=== PATIENT | male | born 1965 | race Caucasian/White ===

== ENCOUNTER 2016-09-21 18:40 | Observation (INO) ==
[2016-09-21] MEDS ORDERED: ALUM/MAG/SIMETH/LIDO VISC 1:1 30 ML BOTTLE PO STA (19:17)
[2016-09-21] MEDS ORDERED: MORPHINE 2 MG/1 ML SYRINGE IV STA (19:17)
[2016-09-21] MEDS ORDERED: ONDANSETRON 4 MG/2 ML VIAL IV STA (19:17)
[2016-09-21] MEDS ORDERED: ASPIRIN 325 MG TABLET PO STA (19:17)
[2016-09-21] MEDS ORDERED: NITROGLYCERIN 2% OINT 1 INCH/GM PACK TOP STA (19:17)
[2016-09-21 19:25] LABS: Basophils % 0.3 % (0.0-0.8); Eosinophils # 0.4 10*3/uL (0.0-0.87); Eosinophils % 6.3 % (0.00-10.9); Hematocrit 39.9 VOL% (42.0-52.0); Hemoglobin 13.5 GM/DL (14.0-18.0); Immature Granulocytes % 0.1 %; Immature Granulocytes Absolute 0.01 #; Lymphocytes # 2.2 10*3/uL (1.4-4.0); Lymphocytes % 32.9 % (21.2-54.2); Mean Corpuscular HGB Conc 33.8 GM/DL (32-36); Mean Corpuscular Hemoglobin 31 PG (27-34); Mean Corpuscular Volume 90.1 FL (87-102); Monocytes # 0.3 10*3/uL (0.11-0.8); Monocytes % 5.1 % (1.7-12.7); Neutrophils # 3.7 10*3/uL (1.4-7.4); Neutrophils % 55.3 % (38.7-73.9); Platelet Count 154 10*3/uL (130-400); Red Blood Count 4.43 10*6/uL (3.8-5.5); Red Cell Distribution Width 13.1 % (9.3-17.3); White Blood Count 6.7 10*3/uL (4.5-13.71)
[2016-09-21 19:35] LABS: PT Patient Result 10.6 SECS
[2016-09-21 19:38] LABS: Albumin 3.7 G/DL (3.4-5.0); Bilirubin,Total 0.5 MG/DL (0.2-1.0); Calcium 8.6 MG/DL (8.5-10.1); Magnesium 1.9 MG/DL (1.8-2.4); Osmolality,Calculated 288.6 MOS/KG (273-304); Total Protein 7.2 G/DL (6.4-8.3)
--- NOTE | 2016-09-21 19:59 | XRay Report ---
History: Chest pain Date: 09/21/2016 Study: Chest x-ray portable Comparison exam: Chest x-ray April 16, 2009 The cardiac silhouette is borderline prominent. There is no mediastinal mass. The pulmonary vasculature is upper normal. Shallow inspiration. There is some mild subsegmental atelectasis in the lung bases. There is no gross pleural effusion. The osseous structures are unchanged. Impression: Shallow inspiration with mild subsegmental atelectasis in the lung bases PROCEDURE INTERPRETED AT [facility] DEPARTMENT OF RADIOLOGY Final Report Signed by: Dr. sEha Cristobal
[2016-09-21] MEDS ORDERED: MORPHINE 2 MG/1 ML SYRINGE ONE (20:17)
[2016-09-21] MEDS ORDERED: NITROGLYCERIN 2% OINT 1 INCH/GM PACK TOP ONE (20:17)
[2016-09-21] MEDS ORDERED: ONDANSETRON 4 MG/2 ML VIAL ONE (20:17)
[2016-09-21] MEDS ORDERED: ASPIRIN 325 MG TABLET ONE (20:18)
[2016-09-21] MEDS ORDERED: ALUM/MAG/SIMETH/LIDO VISC 1:1 30 ML BOTTLE PO ONE (20:18)
[2016-09-21] MEDS ORDERED: BISACODYL 5 MG TABLET PO PRN (20:33)
[2016-09-21] MEDS ORDERED: ONDANSETRON 4 MG/2 ML VIAL IV PRN (20:33)
[2016-09-21] MEDS ORDERED: MAGNESIUM SULF RIDER 2 GM in PREMIX 1 EACH IV PRN (20:33)
[2016-09-21] MEDS ORDERED: MAGNESIUM HYDROXIDE SUSP 30 ML UDCUP PO PRN (20:33)
[2016-09-21] MEDS ORDERED: INSULIN LISPRO 100 UNIT/ML SUBCUT ONE (20:33)
--- NOTE | 2016-09-21 20:42 | Hospitalist History & Physical ---
Assessment and Plan (1) Chest pain Status: Acute Assessment and plan: serial troponins, ekgs, consult Dr Fernando for stress test. asa Current Visit: Yes (2) Hypertension Status: Acute Assessment and plan: metoprolol 25 mg bid Current Visit: Yes (3) Panic attack Status: Acute Assessment and plan: already had one xanax, takes it prn up to qid Current Visit: Yes History of Present Illness Chief complaint: chest pain History of present illness: Mr. Chinchilla is a 51 year old male that was brought to the ED with c/o chest pain after drinking a milkshake. Patient describes his chest pressure pain as pressure with associated shortness of breath and diaphoresis. Lasted approximately 30 minutes. He has had a cath about 3 years ago. He was never diagnosed with an [place]. He is a smoker and has a history of panic attacks. He took a Xanax and started to feel somewhat better. They called 911 and ambulance came and gave him 4 aspirins to chew. He was transported to the emergency room. He does take daily Percocet for chronic neck and back pain. Home Medications Medication Instructions Recorded Confirmed Type Aspirin [Ecotrin] 81 mg PO DAILY 09/21/16 09/21/16 History Multivitamin [Multivitamins] 1 each PO DAILY 09/21/16 09/21/16 History Oxycodone HCl/Acetaminophen 1 each PO BID 09/21/16 09/21/16 History [Oxycodone-Acetaminophen 10-325] amLODIPine [Norvasc] 10 mg PO DAILY 09/21/16 09/21/16 History Allergies Allergy/AdvReac Type Severity Reaction Status Date / Time No Known Allergies Allergy Unverified 09/21/16 18:40 Medical,Surgical,& Family Hx - Medical History Cardio: History of: Hypertension, [place], Cardiovascular Problems (stent x 3 years ago) Neurology: History of: Seizures Musculoskeletal: History of: Musculoskeletal Problems (chronic back pain) - Surgical History Orthopedic Surgeries: Surgical HX of;: Orthopedic Surgery - Family History Family History: Reports;: Family Cancer, Family Diabetes, Family Heart Disease - Social History Smoking Status: Current every day smoker Frequency of Alcohol Use: None Type of Drug Use: None Marital Status: Single Lives With:: Alone Functional capacity: independent ambulation - Constitutional Constitutional: Present: chills, excessive sweating, fatigue. Absent: fever(s) , headache(s) - EENT Eyes: Absent: blurry vision, diplopia Ears: Absent: decreased hearing, ear discharge Nose, mouth and throat: Absent: headache(s), sore throat - Cardiovascular Cardiovascular: Present: chest pain at rest, chest pain with activity, dyspnea on exertion. Absent: dyspnea, edema - Respiratory Respiratory: Present: dyspnea on exertion. Absent: dyspnea - Gastrointestinal Gastrointestinal: Absent: abdominal pain, constipation, diarrhea, nausea, vomiting - Genitourinary Genitourinary: Absent: difficulty urinating, dysuria - Musculoskeletal Musculoskeletal: Present: back pain. Absent: arthralgias - Neurological Neurological: Present: headache(s), other (Slurring of his speech). Absent: confusion, syncope - Psychiatric Psychiatric: Present: anxiety. Absent: depression - Endocrine Endocrine: Present: fatigue. Absent: cold intolerance, heat intolerance - Hematologic/Lymphatic Hematologic/Lymphatic: Absent: easy bleeding, easy bruising Exam - Constitutional Vitals: Period Temp Pulse Resp BP Sys/[place]ina Pulse Ox Last 24 Hr 98.9 F-98.9 F 73-85 12-20 130-141/78-95 95-99 General appearance: no acute distress, under weight - Head Head exam: Present: normal inspection, normocephalic - Eye Eye exam: Present: EOMI. Absent: scleral icterus Pupils: Present: SHAUN, normal accommodation - ENT ENT exam: Present: normal exam, normal external ear exam - Neck Neck exam: Absent: lymphadenopathy, thyromegaly - Respiratory Respiratory exam: Present: clear to auscultation bilaterally. Absent: rhonchi, wheezes - Cardiovascular Cardiovascular exam: Present: regular rate and rhythm. Absent: systolic murmur - GI/Abdominal GI/Abdominal exam: Present: normal bowel sounds, soft. Absent: tenderness - Extremities Exam Extremities exam: Present: normal inspection, normal capillary refill - Neurological Exam Neurological exam: Present: alert, altered (Due to Ryder), CN II-XII intact, reflexes normal. Absent: motor sensory deficit - Psychiatric Psychiatric exam: Present: normal mood, flat affect - Skin Skin exam: Present: normal color, warm Results - Labs CBC & BMP: 09/21/16 18:55 09/21/16 18:55 Lab Results: I have reviewed the past 24 hour labs - EKG EKG shows: sinus rhythm - Diagnostic Findings Procedure: Chest x-ray: report reviewed by me (COPD)
--- NOTE | 2016-09-21 20:59 | Emergency Department Note ---
IZheng Sierra, am scribing for, and in the presence of, Lakhwinder Hamilton MD 19:21. Joy Jones Charles R, MD, personally performed the services described in this documentation, ascribed by Allegra Calzada in my presence, and it is both accurate and complete . Arrival - Arrival Chief Complaint: Chest Pain Stated Complaint: chest pain ED Nursing Triage Note: Pt c/o midsternal chest pain onset 1 hour [employer] - pt states that the pain is worse with movement - pt states that he has been having cough x 2 weeks - pt states that he has chronic back pain and has been taking percocet. Pt was given nitro and ASA without relief Mode of Arrival: Stretcher Limitations: No Limitations Source: Patient Time Seen by Provider: 09/21/16 19:09 - History of Present Illness HPI Narrative: Pt is a 51 y/o male that was brought to the ED via EMS with c/o chest pain that began an hour [employer]. Pt states he was driving and drank a milkshake and pain came on about 30 minutes after finishing milkshake. He reports he pulled over for his to drive and felt dizzy and cold chill and bad chest pain. Pt states he has had previous AL with stents placed. He admits he does take percocet daily for neck and back pain. Pt states pain is not as bad now. His saturation diver is Dr. Etienne, and he cannot remember the last time he seen him. Pt admits he does smoke daily. Pt was given nitroglycerin and ASA by EMS en route with no relief. No other complaints/pain in ED. Onset (ago): hour(s) Consistency: constant Severity: mild, moderate Severity scale (1-10): 3 Quality: sharp Allergies/Adverse Reactions: Allergies Allergy/AdvReac Type Severity Reaction Status Date / Time No Known Allergies Allergy Unverified 09/21/16 18:40 Home Medications: Home Medications Medication Instructions Recorded Confirmed Type Aspirin [Ecotrin] 81 mg PO DAILY 09/21/16 09/21/16 History Multivitamin [Multivitamins] 1 each PO DAILY 09/21/16 09/21/16 History Oxycodone HCl/Acetaminophen 1 each PO BID 09/21/16 09/21/16 History [Oxycodone-Acetaminophen 10-325] amLODIPine [Norvasc] 10 mg PO DAILY 09/21/16 09/21/16 History Review of System - Review of System 12 point system: reviewed and no additional remarkable complaints except as stated - Review of System Constitutional: Present: chills, other (dizzy). Absent: fever Respiratory: Absent: cough Cardiovascular: Present: chest pain Gastrointestinal: Absent: abdominal pain, nausea, vomiting, diarrhea Musculoskeletal: Absent: arm pain, back pain, leg pain, neck pain Skin: Absent: rash Neurological: Absent: headache, weakness, numbness, confusion Psychiatric: Absent: anxiety Medical,Surgical,& Family Hx - Medical History Cardio: History of: Hypertension, [place], Cardiovascular Problems (stent x 3 years ago) Neurology: History of: Seizures Musculoskeletal: History of: Musculoskeletal Problems (chronic back pain) - Social History Smoking Status: Current every day smoker Frequency of Alcohol Use: None Type of Drug Use: None Exam Vital Signs: Vital Signs Temperature 98.9 F 09/21/16 18:48 Pulse Rate 73 09/21/16 20:33 Respiratory Rate 14 09/21/16 20:33 Blood Pressure 130/78 09/21/16 20:33 O2 Sat by Pulse Oximetry 99 09/21/16 20:33 - General General appearance: alert, in no apparent distress, other (weight loss and poor hygeine) - Head Head exam: Present: atraumatic, normocephalic, other (temporal wasting) - Eye Eye exam: Present: PERRL, EOMI - ENT ENT exam: Present: mucous membranes moist. Absent: mucous membranes dry - Neck Neck exam: Present: full ROM. Absent: tenderness - Chest Chest inspection: Present: symmetric chest wall rise, other (barrell chest). Absent: tenderness - Respiratory Respiratory exam: Present: rhonchi, wheezes - Cardiovascular Cardiovascular exam: Present: regular rate, normal rhythm, normal heart sounds - Abdominal Exam Abdominal exam: Present: soft, tenderness (epigastric tenderness) - Extremities Exam Extremities exam: Present: full ROM. Absent: tenderness - Back Exam Back exam: Present: full ROM. Absent: tenderness - Neurological Exam Neurological exam: Present: alert, oriented X3, CN II-XII intact. Absent: motor sensory deficit - Psychiatric Psychiatric exam: Present: normal affect, normal mood - Skin Skin exam: Present: warm, dry Course - Consultations Consultation #1: Hospitalist will admit patient Time: 20:10 Results - Labs CBC & BMP: 09/21/16 18:55 09/21/16 18:55 Lab Results: I have reviewed the patients labs Labs: Laboratory Tests 09/21/16 18:55 Hgb 13.5 L Hct 39.9 L Laboratory Tests 09/21/16 18:55 Sodium 146 H Chloride 109 H Albumin/Globulin Ratio 1.0 L - Diagnostic Findings Procedure: Chest x-ray: report reviewed by me (Shallow inspiration with mild subsegmental atelectasis in the lung bases) Disposition Clinical Impression: Stable angina, Chest pain, COPD (chronic obstructive pulmonary disease) Case discussed with: patient, patient's family Disposition: Still a Patient Condition: Stable Time of Disposition: 20:59
[2016-09-21] MEDS ORDERED: ATORVASTATIN 20 MG TABLET PO SCH (21:00)
[2016-09-21 21:29] LABS: Apearance,Urine CLEAR (Clear); Bilirubin,Urine Negative (Negative); Blood, Urine Negative (Negative); Glucose,Urine (UA) Negative (Negative); Ketones,Urine Negative (Negative); Mucus,Urine Occasional /LPF (Occasional); Nitrite,Urine Negative (Negative); Protein,Urine Negative; RBC,Urine 1 /HPF (0-4); Urine Color Yellow (Yellow); Urine Specific Gravity 1.014 (1.001-1.035); Urine Urobilinogen < 2.0 EU/DL (0.2-1.0); WBC,Urine 1 /HPF (0-6)
[2016-09-21 21:47] LABS: Barbiturates Screen,Urine Negative (Negative); Benzodiazepines Screen,Urine Positive (Negative); Cannabinoid Screen,Urine Negative (Negative); Opiate Screen,Urine Positive (Negative); Phencyclidine Screen,Urine Negative (Negative)
[2016-09-21] MEDS ORDERED: DEXTROSE 50% 25 GM/50 ML VIAL IV PRN (21:51)
[2016-09-21] MEDS ORDERED: GLUCAGON 1 MG VIAL IM PRN (21:51)
[2016-09-21] MEDS: ENOXAPARIN 40 MG/0.4 ML SYRINGE SUBCUT SCH (22:10)
[2016-09-21] MEDS: oxyCODONE/ACETAMINOPHEN 5-325 MG TABLET PO SCH (22:11)
[2016-09-21] MEDS: METOPROLOL TARTRATE 25 MG TABLET PO SCH (22:11)
[2016-09-21] MEDS: SODIUM CHLORIDE 0.45% 1,000 ML IV SCH (22:12)
[2016-09-22 02:04] LABS: Risk Ratio 3.6; VLDL CHOLESTEROL 27.4 MG/DL
[2016-09-22] MEDS ORDERED: ASPIRIN EC 325 MG TABLET PO SCH (09:00)
--- NOTE | 2016-09-22 09:21 | Cardiology Consult Note ---
Assessment and Plan (1) Chest pain Status: Acute Assessment and plan: 51-year-old male, presenting with chest pain, not typical for angina. History of CAD. Substance abuse per U tox, which he denies. Smoker, HTN. Dysphagia susp. for esophageal etiology. -Proceed with stress test, r/o symptomatic CAD. Multiple CV risk factors. No ACS -Continue aspirin, nitroglycerin, statin -Hold BB. This would not be safe to resume, while he keeps using cocaine. Unfortunately, he denies abuse. BP/HR well controlled. -get records from [place] -LDL 111. increase statin dose -cardiac rehab eval for risk factor modification Current Visit: Yes (2) Substance abuse Status: Acute Current Visit: Yes (3) Hypertension Status: Acute Current Visit: Yes (4) COPD (chronic obstructive pulmonary disease) Status: Acute Current Visit: Yes History of Present Illness - Data of Consult Patient: new to practice Consult date: 09/22/16 - Consult Narrative Reason for consult: CP History of present illness: Mr. Chinchilla is a 51 year old male with history of CAD, history of cardiac catheterization, PCI, followed by Dr. Etienne. There is no documentation on this in our records. saw him 6 months ago, when he was feeling fine. He was admitted with sudden onset retrosternal chest pain, which happened while he was driving and after drinking some milk shake. The pain was persistent, was associated with anxiety or shortness of breath and did not subside. An ambulance was called and he was brought to the hospital. He was given aspirin and nitroglycerin, which provided some relief but he is still complaining of some retrosternal chest pain, now also neck pain. Biomarkers are normal and EKG showed no significant changes. He is in sinus rhythm, with occasional PVCs. Urine tested positive for multiple substances, including cocaine, however he denies any substance abuse. He is an every day smoker. He states he is compliant with his medications. He also noticed food sticking in his throat, which was slowly getting worse recently. He has a family history of GI malignancy. No exertional chest pain prior to this presentation, no leg swelling. The pain was similar to what he had 3 years ago, when he was diagnosed with CAD. He has chronic back pain, for which he takes medications. No clauditation. CC: Yasmin Cadena MD - Home Medications and Allergies Home Medications: Home Medications Medication Instructions Recorded Confirmed Type Aspirin [Ecotrin] 81 mg PO DAILY 09/21/16 09/21/16 History Multivitamin [Multivitamins] 1 each PO DAILY 09/21/16 09/21/16 History Oxycodone HCl/Acetaminophen 1 each PO BID 09/21/16 09/21/16 History [Oxycodone-Acetaminophen 10-325] amLODIPine [Norvasc] 10 mg PO DAILY 09/21/16 09/21/16 History Allergies/Adverse Reactions: Allergies Allergy/AdvReac Type Severity Reaction Status Date / Time No Known Allergies Allergy Unverified 09/21/16 18:40 12 point system: reviewed and no additional remarkable complaints except as stated Medical,Surgical,& Family Hx - Medical History Cardio: History of: Hypertension, [place], Cardiovascular Problems (stent x 3 years ago) Neurology: History of: Seizures Musculoskeletal: History of: Musculoskeletal Problems (chronic back pain) - Surgical History Orthopedic Surgeries: Surgical HX of;: Orthopedic Surgery (Left forearm) - Family History Family History: Reports;: Family Cancer, Family Diabetes, Family Heart Disease - Social History Smoking Status: Current every day smoker Frequency of Alcohol Use: None Type of Drug Use: None Physical Examination Vital Signs Temp Pulse Resp BP Pulse Ox 98.9 F 85 20 141/95 95 09/21/16 18:40 09/21/16 18:40 09/21/16 18:40 09/21/16 18:40 09/21/16 18:40 General: Present: Appears Well, No Apparent Distress HEENT: Present: Normocephaly, Mucus Membranes Moist Neck: Present: Supple Neck, No JVD/HJR, No Thyromegaly Cardiac: Present: Reg Rate and Rhythm, Regular Rate, Regular Rhythm, No Murmur Lungs: Present: Normal Exam, Normal Breath Sounds, No Wheeze, Rales, Rhonchi Neuro: Present: Grossly Intact Abdomen: Present: Soft, Active Bowel Sounds Skin: Present: Clear Musculoskeletal: Present: Pain in Joint (neck) Extremities: Present: No Clubbing, No Cyanosis, No Edema Result/EKG - Labs CBC & BMP: 09/21/16 18:55 09/21/16 18:55 Lab Results: I have reviewed the past 24 hour labs Labs: Laboratory Results - last 24 hr 01/04/3009/21/16 09/22/16 22:25 22:37 01:26 POC Glucose 118 H Troponin I 0.018 Triglycerides 137 Cholesterol 180 LDL Cholesterol 111.0 VLDL Cholesterol 27.4 HDL Cholesterol 50 Heart Disease Risk Ratio 3.60 09/22/16 01:26 POC Glucose Troponin I 0.021 Triglycerides Cholesterol LDL Cholesterol VLDL Cholesterol HDL Cholesterol Heart Disease Risk Ratio - EKG EKG results: interpreted by me Specialty Discharge - Follow Up or Referrals - Discharge Medications No Action Oxycodone HCl/Acetaminophen [Oxycodone-Acetaminophen 10-325] 1 each PO BID Multivitamin [Multivitamins] 1 each PO DAILY Aspirin [Ecotrin] 81 mg PO DAILY amLODIPine [Norvasc] 10 mg PO DAILY
[2016-09-22] MEDS ORDERED: ATORVASTATIN 20 MG TABLET PO SCH (09:30)
[2016-09-22] MEDS: SODIUM CHLORIDE 0.45% 1,000 ML IV SCH ×2 (09:40→19:39)
[2016-09-22] MEDS: oxyCODONE/ACETAMINOPHEN 5-325 MG TABLET PO SCH ×2 (09:45→20:23)
[2016-09-22] MEDS: PANTOPRAZOLE 40 MG TABLET PO SCH (09:45)
[2016-09-22] MEDS: METOPROLOL TARTRATE 25 MG TABLET PO SCH (09:47)
[2016-09-22] MEDS: INSULIN LISPRO 100 UNIT/ML SUBCUT SCH ×4 (09:47→20:24)
--- NOTE | 2016-09-22 10:04 | EKG Report ---
Stationary ECG Study [facility] ER Test Date: 09/21/2016 6:41:59 PM Pat Name: ROSAS BROWN Department: Room: 290 Gender: M [employer]er: : 1965 Requested by: Lakhwinder Schaefer Order Number: [id number] Reading MD: ADRIEL DELAROSA Intervals [place] Rate: 80 P: 61 NE: 160 QRS: 24 QRSD: 87 T: 61 QT: 361 QTc: 397 Interpretive Statements SINUS RHYTHM POSSIBLE LEFT ATRIAL ENLARGEMENT Electronically Signed On 09-22-16 11:56:32 BRIEFCASE SEWER by ADRIEL DELAROSA [email or web address]
--- NOTE | 2016-09-22 12:16 | Event Note ---
Underwent Lexiscan stress testing as patient reported gait instability. Tolerated without chest pain. No arrythmia noted. No EKG changes noted. Now to nuclear medicine for completion of final scan. Dr. Sorensen to read, interpret and advise.
[2016-09-22] MEDS ORDERED: REGADENOSON 0.4 MG/5 ML SYRINGE IV ONE (12:35)
[2016-09-22] MEDS ORDERED: BUTALBITAL/ACETAMIN/CAFFEINE 50-325-40 MG TABLET PO PRN (14:17)
--- NOTE | 2016-09-22 14:24 | Cardiology Consult Note ---
Assessment and Plan (1) Abnormal nuclear stress test Status: Acute Assessment and plan: The patient is a hypertensive smoker with an abnormal nuclear stress test. I'm going to plan for cardiac catheterization in the morning. The patient is already eaten today. The risks alternatives and potential benefits of cardiac catheterization were discussed with the patient who understands and wishes to proceed. Current Visit: Yes (2) Smoker Status: Acute Current Visit: Yes (3) COPD (chronic obstructive pulmonary disease) Status: Acute Current Visit: Yes (4) Chest pain Status: Acute Current Visit: Yes (5) Hypertension Status: Acute Current Visit: Yes (6) Substance abuse Status: Acute Current Visit: Yes History of Present Illness - Consult Narrative History of present illness: Mr. Chinchilla is a 51 year old male with a history of hypertension and substance abuse who came into the hospital having acute onset of severe substernal chest pain. He felt somewhat anxious and dyspneic. It was like "an elephant on my chest". The symptoms lasted for about an hour before resolving. There were no specific exacerbating or alleviating factors. He did receive nitroglycerin and aspirin which may have helped to some degree but did not completely relieve the symptoms. He was admitted to the hospital and underwent cardiac ischemic screening. This stress test is mildly abnormal. Because of his risk factors and mildly abnormal stress test I been asked to see the patient in an interventional cardiology consultation to discuss cardiac catheterization. The patient has undergone cardiac catheterization in the past, several years ago by Dr. Etienne. The patient tells me he did not have any significant obstructive coronary artery disease at that time. The patient also has a history of chronic pain and is on chronic narcotic treatment for this. Although the patient denies illicit drug use, he had urine drug test which were positive for multiple illicit drugs. The patient's case was discussed today with Dr. Sorensen. CC: Yasmin Cadena MD - Home Medications and Allergies Home Medications: Home Medications Medication Instructions Recorded Confirmed Type Aspirin [Ecotrin] 81 mg PO DAILY 09/21/16 09/21/16 History Multivitamin [Multivitamins] 1 each PO DAILY 09/21/16 09/21/16 History Oxycodone HCl/Acetaminophen 1 each PO BID 09/21/16 09/21/16 History [Oxycodone-Acetaminophen 10-325] amLODIPine [Norvasc] 10 mg PO DAILY 09/21/16 09/21/16 History Allergies/Adverse Reactions: Allergies Allergy/AdvReac Type Severity Reaction Status Date / Time No Known Allergies Allergy Unverified 09/21/16 18:40 12 point system: reviewed and no additional remarkable complaints except as stated Medical,Surgical,& Family Hx - Medical History Cardio: History of: Hypertension, [place], Cardiovascular Problems (stent x 3 years ago) Neurology: History of: Seizures Musculoskeletal: History of: Musculoskeletal Problems (chronic back pain) - Surgical History Orthopedic Surgeries: Surgical HX of;: Orthopedic Surgery (Left forearm) - Family History Family History: Reports;: Family Cancer, Family Diabetes, Family Heart Disease - Social History Smoking Status: Current every day smoker Frequency of Alcohol Use: None Type of Drug Use: None Physical Examination Vital Signs Temp Pulse Resp BP Pulse Ox 98.9 F 85 20 141/95 95 09/21/16 18:40 09/21/16 18:40 09/21/16 18:40 09/21/16 18:40 09/21/16 18:40 Other: General: Appears well developed, well nourished, no apparent distress HEENT: Normocephalic, atraumatic Neck: Supple Neck, Midline Trachea, No Bruit, No JVD Cardiac: Reg Rate and Rhythm, No Murmur, no gallop, no rub Lungs: Clear to auscultation, No Wheeze, Rales, Rhonchi Neuro: Cranial Nerve 2-12 Intact, Motor Function Grossly Intact Abdomen: Soft, Active Bowel Sounds, No Masses, No Pulsations/Bruits Skin: Normal color, no rash Extremities: No Clubbing, No Cyanosis, No Edema, Normal Upper Extr. Pulses Musculoskeletal: No acute abnormality noted Psychiatric: The patient appears to be anxious but is otherwise appropriate Result/EKG - Labs CBC & BMP: 09/21/16 18:55 09/21/16 18:55 Lab Results: I have reviewed the past 24 hour labs Labs: Laboratory Results - last 24 hr 09/21/16 09/21/16 09/22/16 22:25 22:37 01:26 POC Glucose 118 H Troponin I 0.018 Triglycerides 137 Cholesterol 180 LDL Cholesterol 111.0 VLDL Cholesterol 27.4 HDL Cholesterol 50 Heart Disease Risk Ratio 3.60 09/22/16 01:26 POC Glucose Troponin I 0.021 Triglycerides Cholesterol LDL Cholesterol VLDL Cholesterol HDL Cholesterol Heart Disease Risk Ratio - EKG EKG results: interpreted by me Specialty Discharge - Follow Up or Referrals - Discharge Medications No Action Oxycodone HCl/Acetaminophen [Oxycodone-Acetaminophen 10-325] 1 each PO BID Multivitamin [Multivitamins] 1 each PO DAILY Aspirin [Ecotrin] 81 mg PO DAILY amLODIPine [Norvasc] 10 mg PO DAILY
[2016-09-22] MEDS ORDERED: diphenhydrAMINE CAP 25 MG CAPSULE PO ONE (14:26)
[2016-09-22] MEDS ORDERED: DIAZEPAM 5 MG TABLET PO ONE (14:26)
[2016-09-22] MEDS ORDERED: MAGNESIUM SULF RIDER 2 GM in PREMIX 1 EACH IV PRN (14:26)
[2016-09-22] MEDS ORDERED: POTASSIUM CHLORIDE RIDER 10 MEQ in PREMIX 1 EACH IV PRN (14:26)
--- NOTE | 2016-09-22 15:23 | Nuclear Medicine Report ---
PROCEDURE: Pharmacological stress test. REASON FOR STRESS TEST: Chest pain. PROCEDURE: The patient was unable to perform on the treadmill due to gait instability. Lexiscan stress test was performed. At rest, 10 mCi of Technetium 99-labeled Sestamibi was injected and rest images were obtained, and then 0.4 mg of Lexiscan was injected IV, and then 30 mCi of Technetium 99- labeled Sestamibi was injected and the post-pharmacological stress images were obtained. RESULTS: The resting heart rate of 57 beats per minute kenneth to a maximum heart rate to 97 beats per minute representing 57% of the maximal age-predicted heart rate. The resting blood pressure was 132/68 mmHg kenneth to a maximum blood pressure of 130/78 mmHg. There was no chest pain. The patient developed a headache after Lexiscan injection. Rest EKG shows sinus rhythm, without significant ST-T changes, post-Lexiscan, no significant ST-T changes developed. Rest and post-pharmacological stress gated and perfusion nuclear images were reviewed. The rest images are of good quality and there are minimal motion artifacts on the post-stress images. The end-diastolic volume was 130 cc, the end-systolic volume was 59 cc, and the calculated left ventricular ejection fraction is 55%. Significant spillover from the GI tract in the inferoapical region limits evaluation of the wall motions. The distal anterior/apical area is hypokinetic. The remaining segments have normal systolic wall motion. Interpretation of the perfusion images is, again, limited due to GI spillover, mostly affecting the distal inferior/apical segments. There is an area of mildly increased activity in the anteroseptal/apical region at rest, which becomes moderately photopenic post Lexiscan injection. This is suggestive of reversible ischemia, with old myocardial disease. CONCLUSION: 1. CLINICALLY AND ELECTRICALLY NORMAL LEXISCAN PHARMACOLOGICAL STRESS TEST. 2. NORMAL LEFT VENTRICULAR SIZE, WITH PRESERVED LEFT VENTRICULAR EJECTION FRACTION, WITH HYPOKINESIS IN THE DISTAL ANTERIOR/APICAL REGION, WITH A SMALL AREA SUGGESTIVE OF OLD MYOCARDIAL DISEASE, WITH SUPERIMPOSED ISCHEMIA IN THE DISTAL ANTERIOR/SEPTAL/APICAL REGION. SPECIFICITY OF THE FINDINGS IS LIMITED DUE TO SIGNIFICANT GI SPILLOVER AND MOTION ARTIFACTS IN THE POST-STRESS IMAGES. 3. THIS IS A MODERATE RISK TEST. Procedure performed and interpreted at [facility] Department of Radiology. CC: SILVIA
--- NOTE | 2016-09-22 17:31 | Hospitalist Progress Note ---
Assessment and Plan (1) Chest pain Status: Acute Assessment and plan: 1)abnormal stress test- for cath in am. modify risk factors with good BP control , stop smoking, stop substance abuse, increase statin dose. On asa. 2)HTN- controlled. Dr Sorensen stopped Metoprolol due to cocaine abuse. 3)cocaine abuse 4)chronic pain Current Visit: Yes (2) Hypertension Status: Acute Current Visit: Yes (3) COPD (chronic obstructive pulmonary disease) Status: Acute Current Visit: Yes (4) Substance abuse Status: Acute Current Visit: Yes (5) Abnormal nuclear stress test Status: Acute Current Visit: Yes (6) Smoker Status: Acute Current Visit: Yes Hospitalist: Subjective Interval history: Mr Chinchilla is doing ok, somewhat anxious about cath tomorrow but is able to tell me about why he needs it and what will happen with good understanding of aims of the procedure. No pain right now, no nausea. No shortness of breath. Brother at bedside. Exam - Constitutional Vitals: Period Temp Pulse Resp BP Sys/Medina Pulse Ox Last 24 Hr 97.1 F-98.7 F 65-77 14-24 130-154/78-92 91-99 General appearance: no acute distress, under weight - Head Head exam: Present: normocephalic, atraumatic - Eye Eye exam: Present: EOMI. Absent: scleral icterus - Respiratory Respiratory exam: Present: clear to auscultation bilaterally - Cardiovascular Cardiovascular exam: Present: regular rate and rhythm - GI/Abdominal GI/Abdominal exam: Present: normal bowel sounds, soft. Absent: tenderness - Extremities Exam Extremities exam: Absent: edema - Neurological Exam Neurological exam: Present: alert, oriented X3 Results - Labs CBC & BMP: 09/21/16 18:55 09/21/16 18:55 Lab Results: I have reviewed the past 24 hour labs Specialty Discharge - Follow Up or Referrals - Discharge Medications No Action Oxycodone HCl/Acetaminophen [Oxycodone-Acetaminophen 10-325] 1 each PO BID Multivitamin [Multivitamins] 1 each PO DAILY Aspirin [Ecotrin] 81 mg PO DAILY amLODIPine [Norvasc] 10 mg PO DAILY
[2016-09-22] MEDS: ENOXAPARIN 40 MG/0.4 ML SYRINGE SUBCUT SCH (20:23)
[2016-09-23] MEDS: SODIUM CHLORIDE 0.45% 1,000 ML IV SCH (05:20)
[2016-09-23] MEDS ORDERED: DIAZEPAM 5 MG TABLET PO ONE (07:00)
[2016-09-23] MEDS ORDERED: diphenhydrAMINE CAP 25 MG CAPSULE PO ONE (07:00)
[2016-09-23] MEDS ORDERED: diphenhydrAMINE CAP 50 MG CAPSULE ONE (07:00)
[2016-09-23] MEDS ORDERED: DIAZEPAM 5 MG TABLET ONE (07:01)
[2016-09-23] MEDS: ENOXAPARIN 40 MG/0.4 ML SYRINGE SUBCUT SCH (07:07)
[2016-09-23] MEDS: ASPIRIN EC 81 MG TABLET PO SCH ×3 (07:07→09:52)
[2016-09-23] MEDS: PANTOPRAZOLE 40 MG TABLET PO SCH ×2 (07:33→09:53)
[2016-09-23] MEDS ORDERED: HEPARIN/NACL 0.9% 2 UNITS/ML 1,000 ML IV ONE (07:53)
[2016-09-23] MEDS ORDERED: LIDOCAINE 1% 20 ML VIAL ONE (07:53)
[2016-09-23] MEDS ORDERED: MIDAZOLAM 2 MG/2 ML VIAL ONE (07:56)
[2016-09-23] MEDS ORDERED: HYDROmorphone 2 MG/1 ML VIAL ONE (07:56)
--- NOTE | 2016-09-23 08:24 | Cardiac Catheterization ---
Date of Procedure:: 09/23/16 Procedure: CLINICAL SUMMARY: The patient presented with some chest pain symptoms and had an abnormal stress test. He is now undergoing cardiac catheterization for definitive coronary artery assessment. PROCEDURES PERFORMED: 1. Right femoral percutaneous arteriotomy 2. Left heart catheterization. 3. Resting hemodynamics. 4. Left ventriculography. 5. Coronary arteriography. 6. Right femoral arteriogram. 7. Angio-Seal closure of the right femoral artery. DESCRIPTION OF PROCEDURE: After obtaining informed consent, the patient was brought to the cardiac catheterization lab where the right groin was prepped and draped in the usual sterile manner. Using IV sedation, local anesthesia, and Modified Seldinger technique, a needle was placed in the right femoral artery and a sheath was positioned without difficulty. A left coronary catheter was advanced over a guidewire under fluoroscopic control to the ascending aorta where angiograms of the left coronary artery were undertaken in multiple views. After adequate angiograms, this catheter was withdrawn and a right coronary catheter was advanced over a guidewire under fluoroscopic control to the ascending aorta with angiograms of the RCA were undertaken in numerous projections. After adequate angiograms, this catheter was removed and a pigtail ventriculographic catheter was advanced over a guidewire under fluoroscopic control to the aortic valve and left ventricular pressures were measured. After adequate pressures were measured, this catheter was used to perform left ventriculography in the DEGROOT projection. This catheter was then withdrawn under hemodynamic monitoring and removed from the patient. A right femoral arteriogram was performed showing adequate sheath placement for closure device deployment. The sheath was then removed and an Angio-Seal device was used to obtain hemostasis. The patient was transferred back to the room having suffered no immediate complications. HEMODYNAMICS: See the accompanying data sheet. CORONARY ARTERIOGRAPHY: LEFT MAIN: The left main coronary artery is a large caliber vessel, which bifurcates into the left anterior descending and left circumflex coronary arteries. The left main coronary artery has no significant obstructive disease. LEFT CIRCUMFLEX: The left circumflex coronary artery is a small vessel which gives off on small moderate-sized obtuse marginal branch. The left circumflex coronary artery and its tributaries are angiographically free of significant obstructive disease. LEFT ANTERIOR DESCENDING: The left anterior descending artery is a moderate sized vessel which gives off 2 moderate-sized diagonal branches. The left anterior descending coronary artery and its tributaries are angiographically free of significant obstructive disease. RIGHT CORONARY ARTERY: The right coronary artery is a large-caliber vessel which gives off the posterior descending artery and a posterolateral system. The right coronary artery and its tributaries are angiographically free of significant obstructive disease. LEFT VENTRICULOGRAPHY: Left ventricular ejection fraction is estimated at 50-55 % with normal regional wall motion. PERIPHERAL ARTERIOGRAPHY: Right femoral arteriogram shows a normal right iliofemoral artery with adequate sheath placement for closure device deployment. IMPRESSIONS: 1. There is no significant obstructive coronary artery disease. 2. Normal left ventricular ejection fraction as described above. 3. Normal right iliofemoral artery with successful and distal closure. PLAN: Patient was transferred back to his room for recovery. It appears that his symptoms on presentation were noncardiac in nature. I don't think any additional cardiac workup or treatment is required. From my standpoint he could be discharged home later today. Anesthesia: minimal conscious sedation Surgeon / Physician: Gurjit Gandhi Estimated blood loss: minimal Condition: stable Disposition: floor - Medications / Follow-up
--- NOTE | 2016-09-23 08:26 | Cardiology Progress Note ---
Assessment and Plan (1) Chest pain Status: Acute Assessment and plan: Based on his cardiac catheterization this appears to be noncardiac in nature. I don't think any additional cardiac workup or treatment is required. From my standpoint patient be discharged home to follow-up with his primary physician. Current Visit: Yes (2) Abnormal nuclear stress test Status: Acute Assessment and plan: The patient underwent cardiac catheterization today which showed no significant obstructive coronary artery disease and normal left ventricular systolic function. It appears that the nuclear scan was a false positive related to artifact/motion. I don't think any additional cardiac workup or treatment is required. From my standpoint he could be discharged home later today. Current Visit: Yes (3) Smoker Status: Acute Current Visit: Yes (4) COPD (chronic obstructive pulmonary disease) Status: Acute Current Visit: Yes (5) Hypertension Status: Acute Current Visit: Yes (6) Substance abuse Status: Acute Current Visit: Yes Cardiology - PN: Subj Interval history: The patient remained stable overnight. There have been no arrhythmias or other cardiac related problems. He underwent cardiac catheterization this morning was demonstrated normal coronary anatomy without significant obstructive disease. He had preserved left ventricular systolic function. It appears that his presenting symptoms were noncardiac in nature. From my standpoint he could be discharged home later today. Current Medications Acetaminophen/Butalbital/Caffeine (Fioricet) 1 tablet PO Q4H PRN PRN Reason: pain Last Admin: 09/22/16 14:54 Dose: 1 tablet Aspirin () 81 mg PO DAILY [facility] Last Admin: 09/23/16 07:33 Dose: 81 mg Atorvastatin Calcium (Lipitor) 40 mg PO BEDTIME [facility] Last Admin: 09/22/16 20:23 Dose: 40 mg Bisacodyl (Dulcolax Tab) 10 mg PO DAILY PRN PRN Reason: Constipation Dextrose/Water (D50) 25 gm IV PRN PRN PRN Reason: Hypoglycemia with IV access Enoxaparin Sodium (Lovenox) 40 mg SUBCUT Q24H [facility] Last Admin: 09/23/16 07:07 Dose: 40 mg Glucagon () 1 mg IM PRN PRN PRN Reason: Hypoglycemia w/o IV access Sodium Chloride (1/2ns) 1,000 mls @ 100 mls/hr IV .Q10H [facility] Last Admin: 09/23/16 05:20 Dose: Not Given Magnesium Sulfate 2 gm/ Premix 50 mls @ 25 mls/hr IV ONCE PRN PRN Reason: Magnesium level 1.5 to 1.8 Potassium Chloride 10 meq/ (Premix) 100 mls @ 100 mls/hr IV Q1H PRN PRN Reason: Potassium less than 3.5 Magnesium Sulfate 2 gm/ Premix 50 mls @ 25 mls/hr IV ONCE PRN PRN Reason: Magnesium less than 1.8 Insulin Human Lispro (Humalog) 0 unit SUBCUT ACHS [facility] PRN Reason: Protocol Last Admin: 09/22/16 20:24 Dose: Not Given Magnesium Hydroxide (Milk Of Magnesia) 30 ml PO Q6H PRN PRN Reason: Constipation Metoprolol Tartrate (Lopressor Tab) 25 mg PO BID [facility] Last Admin: 09/22/16 09:47 Dose: Not Given Ondansetron HCl (Zofran Inj) 4 mg IV Q4H PRN PRN Reason: Nausea/Vomiting Oxycodone/Acetaminophen (Percocet 5-325) 2 tablet PO BID [facility] Last Admin: 09/22/16 20:23 Dose: 2 tablet Pantoprazole Sodium (Protonix Tab) 40 mg PO DAILY [facility] Last Admin: 09/23/16 07:33 Dose: 40 mg Exam (Progress Note) - Constitutional Vitals: Period Temp Pulse Resp BP Sys/Medina Pulse Ox Last 24 Hr 96.4 F-97.7 F 62-92 18-30 128-154/78-90 94-95 Exam: General: Appears well developed, well nourished, no apparent distress HEENT: Normocephalic, atraumatic Neck: No JVD Cardiac: Reg Rate and Rhythm, No Murmur, no gallop, no rub Lungs: Clear to auscultation, No Wheeze, Rales, Rhonchi Neuro: Cranial Nerve 2-12 Intact, Motor Function Grossly Intact Skin: Normal color, no rash Extremities: No Clubbing, No Cyanosis, No Edema, Normal Upper Extr. Pulses Musculoskeletal: No acute abnormality noted Psychiatric: The patient is moderately anxious Result/EKG - Labs CBC & BMP: 09/21/16 18:55 09/21/16 18:55 Lab Results: I have reviewed the past 24 hour labs Labs: Laboratory Results - last 24 hr 09/22/16 09/22/16 09/22/16 07:18 15:28 19:35 POC Glucose 90 98 121 H 09/23/16 07:38 POC Glucose 95 - EKG EKG results: interpreted by me Specialty Discharge - Follow Up or Referrals - Discharge Medications No Action Oxycodone HCl/Acetaminophen [Oxycodone-Acetaminophen 10-325] 1 each PO BID Multivitamin [Multivitamins] 1 each PO DAILY Aspirin [Ecotrin] 81 mg PO DAILY amLODIPine [Norvasc] 10 mg PO DAILY
[2016-09-23] MEDS: oxyCODONE/ACETAMINOPHEN 5-325 MG TABLET PO SCH (09:51)
[2016-09-23] MEDS: INSULIN LISPRO 100 UNIT/ML SUBCUT SCH (09:52)
--- NOTE | 2016-09-23 12:43 | Discharge Summary ---
Hospital Course - Hospital Course Hospital Course: MR Chinchilla was admitted with chest pain. He was positive for cocaine. He ruled out for AR, and his stress test showed an area of potential ischemia so he had cath today. It was clear. He has been getting up and leaving the floor to smoke even while on bedrest. He has been counselled to stop smoking and using illicit drugs. He will go to [place] for counselling and treatment of anxiety and will follow up with his PCP Dr Griffin this week. Diagnosis - Discharge Diagnosis (1) Chest pain Status: Resolved (2) Hypertension Status: Chronic (3) COPD (chronic obstructive pulmonary disease) Status: Chronic (4) Substance abuse Status: Acute (5) Abnormal nuclear stress test Status: Acute (6) Smoker Status: Acute Specialty Discharge - Follow Up or Referrals Follow up with: [facility], outpatient counseling [Other] Vanessa Griffin MD [Physician] - 3 Days - Discharge Medications Continue Oxycodone HCl/Acetaminophen [Oxycodone-Acetaminophen 10-325] 1 each PO BID Multivitamin [Multivitamins] 1 each PO DAILY Aspirin [Ecotrin] 81 mg PO DAILY amLODIPine [Norvasc] 10 mg PO DAILY Discharge Plan - Discharge Data Disposition: Disch To Home/Self Care Condition at Discharge: Stable Discharge Diet: heart healthy - Discharge Medications Continue Oxycodone HCl/Acetaminophen [Oxycodone-Acetaminophen 10-325] 1 each PO BID Multivitamin [Multivitamins] 1 each PO DAILY Aspirin [Ecotrin] 81 mg PO DAILY amLODIPine [Norvasc] 10 mg PO DAILY - Follow Up or Referral Follow Up: [facility] [Other] Vanessa Griffin MD [Physician] - 3 Days - Forms/Instructions Instructions: Angina (GEN), Heart Healthy Diet (GEN), Cigarette Smoking and Your Health (GEN) Additional Discharge Instructions: stop smoking and using drugs Exam - Constitutional Vitals: Period Temp Pulse Resp BP Sys/Medina Pulse Ox Last 24 Hr 96.4 F-98.6 F 62-92 18-30 128-154/62-90 93-95 General appearance: normal weight, no acute distress - Eye Eye exam: Present: EOMI. Absent: scleral icterus - Respiratory Respiratory exam: Present: clear to auscultation bilaterally - Cardiovascular Cardiovascular exam: Present: regular rate and rhythm - GI/Abdominal GI/Abdominal exam: Present: normal bowel sounds, soft. Absent: tenderness - Extremities Exam Extremities exam: Absent: edema Discharge Results Procedures and tests throughout hospitalization: Pending Orders 09/23/16 06:46 CL heart Routine Labs on day of discharge: Labs from last 24 hours 09/23/16 09/23/16 09/22/16 11:49 07:38 19:35 POC Glucose 93 95 121 H 09/22/16 09/22/16 15:28 07:18 POC Glucose 98 90 DS: Provider Date of admission: 09/21/16 20:32 Primary care physician: . No PCP Attending physician on admission: Yasmin Cadena MD Consults: 09/21/16 20:36 Consult to Physician [CONS] Routine Comment: chest pain Consulting Provider: Alfonso Fernando When should Consulting Provider be notified: Now Consult to Specialist Group: Cardiology Person Notified: TAL Date Notified: 09/22/16 Time Notified: 07:40 09/22/16 09:15 Consult to Cardiac Rehabilitation [CONS] Routine Reason for Cardiac Rehabilitation: Risk Factor Modification Discharging clinician: Megan Cabrera MD
[2016-09-23 15:11] VITALS: BP 176/82
== END 2016-09-23 15:00 | disposition home or self-care (01) ==
LOC: EDUNIT# → EDBD → N.EDINP 18:40 → N.ED 18:40 → N.EDINP 21:23 → N.TELEN 21:35
PROVIDERS: ADMIT Internal Medicine; ATTEND Internal Medicine
PROC: CLCCHCL (ICD-10-PCS; 2016-09-23 08:15)